=== PATIENT | male | born 1985 | race Hispanic/Latino ===

== ENCOUNTER 2023-07-18 20:09 | Emergency (ER) | payer BC, OTHER ==
--- OUTSIDE RECORDS SUMMARY | 2023-07-18 20:14 | XMS REPORT | Continuity of Care Document ---
:1985 Author Organization [facility] t Address [address] [facility] [address] [place] [address] Care Team Providers Name Role Phone Jos Almaraz Primary Care Physician BRENDEN BULLOCK Attending Clinician Unavailable Person Brenden ANDERSON Attending Clinician TAWANA NATHAN Attending Clinician Unavailable TAWANA NATHAN Attending Clinician Unavailable Tawana Nathan DO Attending Clinician KALPANA FIELD Attending Clinician Unavailable Jos Almaraz Attending Clinician Lab, Adc Fam Pob I Attending Clinician Unavailable Isidra Fuentes Attending Clinician Doctor Unassigned, [place] Attending Clinician Unavailable Liseth Crespo Attending Clinician Antoine Telles MD Attending Clinician ANTOINE TELLES Attending Clinician Unavailable BRENDEN BULLOCK Admitting Clinician Unavailable Person Brenden ANDERSON Admitting Clinician LISETH SCHILLING Admitting Clinician Unavailable Payers Payer Name Policy Type Policy Number Effective Date Expiration Date S petra [place] [id number] 2022 2023 OUT OF STATE 00:00:00 00:00:00 [facility] [id number] 2023 HEALTHCARE 00:00:00 [facility] [id number] 2023 SERVICES 00:00:00 Problems Condition Condition Condition Status Onset Resolution Last Treating Co mments Source Name Details Category Date Date Treatment Clinician Date Trauma Trauma Disease Active Univers 8- ity of 00:00: [place] 00 Medical Branch Seizures Seizures Disease Active [facility] 2-24 Health 00:00: 00 Cerebral Cerebral Problem Active 2022-01-26 Memoria cysticerco cysticerco 01:52:08 l sis sis [place] (disorder) (disorder) Active Problem 01/26/2022 [facility] Epilepsy Epilepsy Problem Active 2022-01-26 Memoria characteri characteri 01:52:08 l zed by zed by [place] 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 (disorder) (disorder) Active Problem 01/26/2022 [facility] Simple Simple Problem Active 2022-01-26 Mem oria obesity obesity 01:52:08 l (disorder) (disorder) He rmann Active Problem 01/26/2022 [facility] Allergies, Adverse Reactions, Alerts Allergy Allergy Status Severity Reaction(s) Onset Inactive Treating Comm ents Source Name Type Date Date Clinician Penicill Propensi Active Unknown - Uni vers in ty to See comments 05-20 ity of adverse 00:00: [place] reaction 00 Medical s Branch PENICILL DRUG Active Unknown-Cmnt Un stephanie IN INGREDI 05-20 ity of 00:00: [place] 00 Medical Branch Penicill Allergy Active Other [facility] in G to 05-20 Health substanc 00:00: e 00 penicill penicill Active Memori a in in l [place] Social History Social Habit Start Date Stop Date Quantity Comments Source Gender identity [facility] Sexual orientation Univer [facility] History of tobacco Cigarette Smoker [facility] use Exposure to 2023-01-04 2023-01-14 Not sure [facility] SARS-CoV-2 (event) 00:00:00 13:13:00 Tobacco use and 2023-01-14 2023-01-14 Former smokeless [facility] exposure 00:00:00 00:00:00 tobacco user Alcohol intake 2023-01-14 2023-01-14 [facility]er [facility] 00:00:00 00:00:00 of alcohol (finding) Social History 2020-12-27 2020-12-27 [facility] roberto 20:25:02 20:25:02 Sex Assigned At [birth year] [facility] 00:00:00 00:00:00 Smoking Status Start Date Stop Date Source Tobacco smoking consumption [facility] Branch Smokes tobacco daily 2023-01-14 00:00:00 [facility] Medications Ordered Filled Start Stop Current Ordering Indication Dosage Frequency Signature Comments Components Source Medication Medication Date Date Medication? Clinician (SIG) Name Name methocarbam Yes 1000mg 1,000 mg, Univers oL 07-17 Oral, QID, ity of (ROBAXIN) [place] Wed Medical 1,000 mg 07/16/23 at [facility] h 1999, Until Discontinu ed, Routine enoxaparin Yes 30mg 30 mg, Unive rs (LOVENOX) 07-17 Subcutaneo ity of injection 01:00: us, Q12H, Bry[place] as 30 mg 00 First dose Medical on Wed Branch 07/16/23 at 2000, Until Discontinu ed, Routine NON-FORMULA Yes 200mg 200 mg, Un stephanie RY 07-16 Oral, ity of MEDICATION 23:45: DAILY, [place] 200 mg 00 First dose Medical on Wed Branch 07/16/23 at 1845, Until Discontinu ed, Routine
Medicatio n Name: xcorpi
Length of Therapy: Indefinite
How soon needed (normally 72 hours needed to procure): 0-24 hrs
[place] son for non-formul horacio use: PATIENT CURRENTLY TAKING NONFORMULA RY PRODUCT
history faculty member approving Non-formul horacio medication : BRENDEN BULLOCK
Specific indication for non formulary use: siezures<b r>Literatu re citation: see neurology note<br&gt ;Dosage Form: Tablet pantoprazol 2022- Yes 40mg 40 mg, Uni vers e 07-16 Slow IV ity of (PROTONIX) 22:45: 22:44 Push, [place] injection 00 :00 Q24H, 3 Medical 40 mg doses, Branch First dose on Wed07/16/23 at 1745, Last dose on Wed07/18/23 at 1745 FENTanyl PF 2022- No 75ug 75 mcg, Un stephanie (SUBLIMAZE 07-16 Slow IV ity o f (PF)) 22:45: 22:01 Push, [place] injection 00 :00 ONCE, 1 Medical 75 mcg dose, On Branch 07/16/23 at 1745, Routine clonazePAM 2022- No .5mg 0.5 mg, Uni vers (KLONOPIN) 07-16 Oral, ONCE it y of tablet 0.5 22:45: 22:44 NOW, 1 [place] mg 00 :00 dose, On Medical Fri Branch 07/16/23 at 1745, Routine HYDROcodone Yes 1{tbl} 1 tablet, Univers -acetaminop 07-16 Oral, ity of hen (NORCO 22:40: Q6HPRN, [place] 5) 5-325 mg 51 Starting Medi dominique tablet 1 on Fri Branch tablet 07/16/23 at 1740, Until Discontinu ed, Routine, Pain (scale 4-6) acetaminoph Yes 1000mg 1,000 mg, Univers en 07-16 Oral, ity of (TYLENOL) 22:38: Q6HPRN, [place] tablet 46 Starting Medical 1,000 mg on Fri Branch 07/16/23 at 1738, Until Discontinu ed, Routine, Pain (scale 1-3) lacosamide 2022- No 200mg 200 mg, Un stephanie (VIMPAT) 07-16 Oral, ity of tablet 200 18:15: 17:52 ONCE, 1 [place] mg 00 :00 dose, On Medical Fri Branch 07/16/23 at 1315, Routine
history faculty member approving Restricted medication : TAWANA NATHAN iopamidol 2022- No [id number] 85mL 85 mL, Univers (ISOVUE 07-16 Intravenou ity o f 370-500 mL) 15:45: 15:45 s, ONCE, 1 [place] injection 00 :00 dose, On Medica l 85 mL Fri Branch 07/16/23 at 1045, Routine ketorolac 2022- No 30mg 30 mg, Unive rs (TORADOL) 8-25 08-25 Slow IV ity of injection 15:00: 14:17 Push, [place] 30 mg 00 :00 ONCE, 1 Medical dose, On Branch 07/16/23 at 1000, Routine morpHINE (4 2022- No 4mg 4 mg, Slow Univers mg/mL) 07-16 IV Push, ity of injection 4 14:15: 14:18 ONCE, 1 [place] mg 00 :[place] dose, On Medical Fri Branch 07/16/23 at 0915, STAT Cenobamate 2022-0 Yes [id number] 400mg QD Take 400 UT (Xcopri) 4-04 mg by Health 200 MG 00:00: mouth 1 tablet 00 (one) time each day. Cenobamate 2022-0 2022- No [id number] Take 50 mg UT (Xcopri) 50 2-15 03-08 by mouth 1 H ealth MG tablet 00:00: 04:59 (one) time 00 :00 each day for 14 days, THEN 100 mg 1 (one) time each day for 14 days, THEN 150 mg 1 (one) time each day for 14 days. lacosamide 2022-0 Yes 200mg Q.5D Take 200 UT (Vimpat) 2-17 mg by [facility] 200 mg 00:00: mouth in tablet 00 the tablet morning and 200 mg before bedtime. Xcopri 200 2022-0 2022- No 1{tbl} QD Take 1 UT MG tablet 2-17 -23 tablet by [facility] 00:00: 00:00 mouth 1 00 :00 (one) time each day. cenobamate 2021-0 Yes 100 mg = 1 M emoria 100 mg oral 3-04 tab, PO, l tablet 20:35: Daily, # [place] 00 30 tab, 3 Refill(s), Pharmacy: 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, Weight {2020-11 Yes See Memoria (cenobamate 1-11 Instructio l 12.5 MG 21:35: ns, take Dionte n Oral Tablet 00 as [Xcopri]) / diected, # 14 1 kit, 0 (cenobamate Refill(s), 25 MG Oral Pharmacy: Tablet [facility] [Xcopri]) } Pharmacy Pack 527, [Xcopri 177.8, cm, Titration 10/02/21 Pack - 12.5 15:19:00 MG (14), 25 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, MG (14) 28 Height, Count] 108.636, kg, 10/02/21 15:19:00 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, Weight {2020-11 No See Memoria (cenobamate 1-11 Instructio l 12.5 MG 21:32: ns, take Dionte n Oral Tablet 00 as [Xcopri]) / diected, # 14 1 kit, 0 (cenobamate Refill(s) 25 MG Oral Tablet [Xcopri]) } Pack [Xcopri Titration Pack - 12.5 MG (14), 25 MG (14) 28 Count] {2020-11 No See Memoria (cenobamate 1-11 Instructio l 12.5 MG 21:32: ns, take Dionte n Oral Tablet 00 as [Xcopri]) / diected, # 14 1 kit, 0 (cenobamate Refill(s) 25 MG Oral Tablet [Xcopri]) } Pack [Xcopri Titration Pack - 12.5 MG (14), 25 MG (14) 28 Count] lacosamide 2020-0 Yes 200 mg = 1 M emoria 200 MG Oral 9-07 tab, PO, l Tablet 18:43: BID, # 60 [place] [Vimpat] 00 tab, 3 Refill(s), Pharmacy: [facility], 182.88, cm, 05/22/21 9:53:00 CDT, Height, 111.364, kg, 05/22/21 9:53:00 CDT, Weight lacosamide 2020-0 Yes 200 mg = 1 M emoria 200 MG Oral 9-07 tab, PO, l Tablet 18:43: BID, # 60 [place] [Vimpat] 00 tab, 3 Refill(s), Pharmacy: [facility], 182.88, cm, 05/22/21 9:53:00 CDT, Height, 111.364, kg, 05/22/21 9:53:00 CDT, Weight lacosamide 2020-0 Yes 200 mg = 1 M emoria 200 MG Oral 5-20 tab, PO, l Tablet 14:44: BID, # 60 [place] [Vimpat] 00 tab, 3 Refill(s), Pharmacy: [facility] #[id number], 182.88, cm, 03/21/21 10:21:00 CDT, Height, 108.182, kg, 04/10/21 9:15:00 CDT, Weight lacosamide 2021-0 Yes 200 mg = 1 M emoria 200 MG Oral 5-20 tab, PO, l Tablet 14:44: BID, # 60 [place] [Vimpat] 00 tab, 3 Refill(s), Pharmacy: [facility] #[id number], 182.88, cm, 03/21/21 10:21:00 CDT, Height, 108.182, kg, 04/10/21 9:15:00 CDT, Weight lacosamide 2021-0 Yes 150 mg = 1 M emoria 150 MG Oral 4-30 tab, PO, l Tablet 15:35: BID, # 60 [place] [Vimpat] 00 tab, 3 Refill(s), Pharmacy: [facility] #[id number], 182.88, cm, 03/21/21 10:21:00 CDT, Height, 110.909, kg, 03/21/21 10:21:00 CDT, Weight lacosamide 2021-0 Yes 150 mg = 1 M emoria 150 MG Oral 4-30 tab, PO, l Tablet 15:35: BID, # 60 [place] [Vimpat] 00 tab, 3 Refill(s), Pharmacy: [facility] #[id number], 182.88, cm, 03/21/21 10:21:00 CDT, Height, 110.909, kg, 03/21/21 10:21:00 CDT, Weight lacosamide 2021-0 Yes 100 mg = 1 M emoria 100 MG Oral 3-19 tab, PO, l Tablet 16:28: BID, # 60 [place] [Vimpat] 00 tab, 3 Refill(s), Pharmacy: [facility] #[id number], 182.88, cm, 02/07/21 10:55:00 CDT, Height, 115.455, kg, 02/07/21 10:55:00 CDT, Weight lacosamide 2021-0 Yes 100 mg = 1 M emoria 100 MG Oral 3-19 tab, PO, l Tablet 16:28: BID, # 60 [place] [Vimpat] 00 tab, 3 Refill(s), Pharmacy: [facility] #[id number], 182.88, cm, 02/07/21 10:55:00 CDT, Height, 115.455, kg, 02/07/21 10:55:00 CDT, Weight lacosamide 2020-0 Yes 50 mg = 1 Me moria 50 MG Oral 2-05 tab, PO, l Tablet 21:56: BID, # 60 [place] [Vimpat] 00 tab, 3 Refill(s), Pharmacy: [facility] #[id number], 182.88, cm, 12/27/20 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, Height, 111.364, kg, 12/27/20 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, Weight lacosamide 2020-0 Yes 50 mg = 1 Me moria 50 MG Oral 2-05 tab, PO, l Tablet 21:56: BID, # 60 [place] [Vimpat] 00 tab, 3 Refill(s), Pharmacy: [facility] #[id number], 182.88, cm, 12/27/20 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, Height, 111.364, kg, 12/27/20 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, Weight Levetiracet 2020-0 Yes 500 mg = 1 Memoria am 500 MG 2-05 tab, PO, l Oral Tablet 21:55: Bedtime, # [place] 00 30 tab, 3 Refill(s), Pharmacy: [facility] #[id number], 182.88, cm, 12/27/20 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 levETIRAcet 2019-11 Yes [id number] 500mg Take 1 Univers am (KEPPRA) 1-20 tablet by ity of 500 mg 00:00: mouth 2 [place] tablet 00 (two) Medical times Branch daily. levETIRAcet 2019-11 Yes [id number] 500mg Take 1 Univers am (KEPPRA) 1-20 tablet by ity of 500 mg 00:00: mouth 2 [place] tablet 00 (two) Medical times Branch daily. levETIRAcet 2019-11 Yes [id number] 500mg Take 1 Univers am (KEPPRA) 1-20 tablet by ity of 500 mg 00:00: mouth 2 [place] tablet 00 (two) Medical times Branch daily. levETIRAcet 2019-11- No [id number] 500mg Take 1 Univers am (KEPPRA) 1-20 08-25 tablet by it y of 500 mg 00:00: 00:00 mouth 2 [place] tablet 00 :00 (two) Medical times Branch daily. Vital Signs Vital Name Observation Time Observation Value Comments Source Systolic blood 2023-07-17 01:43:00 120 mm[facility]Hg[facility] [place] [facility] Diastolic blood 2023-07-17 01:43:00 82 mm[Hg] [facility] Heart rate 2023-07-17 01:43:00 70 /min General acute hospital Respiratory rate 2023-07-17 01:43:00 18 /min [place] [facility] in 2023-07-17 01:43:00 99 /min [facility] Arterial blood by [facility] Pulse oximetry Branch Body height 2023-07-16 20:10:47 182.9 cm General acute hospital Body weight 2023-07-16 20:10:47 117.935 kg Universi ty [facility] BMI 2023-07-16 20:10:47 35.26 kg/m2 Universi ty [facility] Body temperature 2023-07-16 20:10:00 36.61 Sofya Univ ersity of [facility] Systolic blood 2023-07-16 18:35:00 120 mm[Hg] Univer sity of pressure [facility] Diastolic blood 2023-07-16 18:35:00 78 mm[Hg] Unive rsity of pressure [facility] Heart rate 2023-07-16 18:35:00 66 /min Universi ty of [facility] Body temperature 2023-07-16 18:35:00 36.89 [facility] Respiratory rate 2023-07-16 18:35:00 16 /min [facility] in 2023-07-16 18:35:00 96 /min University Arterial blood by [facility] Pulse oximetry Branch Body height 2023-07-16 14:25:08 182.9 cm Universi ty [facility] Body weight 2023-07-16 14:25:08 117.028 kg Universi ty [facility] BMI 2023-07-16 14:25:08 [facility] Systolic blood 2023-01-14 21:16:00 126 mm[Hg] [facility] Diastolic blood 2023-01-14 21:16:00 76 mm[Hg] [facility] pressure Heart rate 2023-01-14 21:16:00 84 /min [facility] Body temperature 2023-01-14 21:16:00 36.72 Sofya [facility] Respiratory rate 2023-01-14 21:16:00 16 /min [facility] Body height 2023-01-14 21:16:00 182.9 cm [facility] Body weight 2023-01-14 21:16:00 118.842 kg [facility] BMI 2023-01-14 21:16:00 35.53 kg/m2 [facility] Oxygen saturation in 2023-01-14 21:16:00 99 /min [facility] Arterial blood by Pulse oximetry Systolic blood 2020-10-11 10:58:25 138 mm[Hg] Univer sity of pressure [facility] Diastolic blood 2020-10-11 10:58:25 73 mm[Hg] Unive rsity of pressure [facility] Heart rate 2020-10-11 10:58:25 61 /min General acute hospital Respiratory rate 2020-10-11 10:58:25 17 /min [facility] Oxygen saturation in 2020-10-11 10:58:25 97 /min [facility] Arterial blood by [facility] Pulse oximetry Branch Body temperature 2020-10-11 08:35:00 36.78 Sofya [place] [facility] Body height 2020-10-11 08:35:00 182.9 cm General acute hospital Body weight 2020-10-11 08:35:00 104.781 kg General acute hospital BMI 2020-10-11 08:35:00 31.33 kg/m2 General acute hospital Systolic (mm Hg) 2022-01-23 20:09:00 Dru rial [place] Diastolic (mm Hg) 2022-01-23 20:09:00 Mem orial [place] Heart Rate 2022-01-23 20:09:00 [facility] [place] Respitory Rate 2022-01-23 20:09:00 Memori al [place] Height 2022-01-23 20:09:00 177.8 cm [facility] [place] Weight 2022-01-23 20:09:00 [facility] [place] BMI Calculated 2022-01-23 20:09:00 Memori al [place] Systolic (mm Hg) 2021-10-02 21:08:00 Dru rial [place] Diastolic (mm Hg) 2021-10-02 21:08:00 Mem orial [place] Heart Rate 2021-10-02 21:08:00 Memorial [place] Respitory Rate 2021-10-02 21:08:00 Memori al [place] Height 2021-10-02 21:08:00 177.8 cm Memorial [place] Weight 2021-10-02 21:08:00 [facility] [place] BMI Calculated 2021-10-02 21:08:00 Memori al [place] Systolic (mm Hg) 2021-08-22 14:07:00 Dru rial [place] Diastolic (mm Hg) 2021-08-22 14:07:00 Mem orial [place] Heart Rate 2021-08-22 14:07:00 Memorial [place] Respitory Rate 2021-08-22 14:07:00 Memori al [place] Height 2021-08-22 14:07:00 177.8 cm Memorial [place] Weight 2021-08-22 14:07:00 [facility] [place] BMI Calculated 2021-08-22 14:07:00 Memori al [place] Diastolic (mm Hg) 2021-05-22 14:38:00 Mem orial [place] Heart Rate 2021-05-22 14:38:00 [facility] [place] Respitory Rate 2021-05-22 14:38:00 Memori al [place] Height 2021-05-22 14:38:00 182.88 cm Memorial [place] Weight 2021-05-22 14:38:00 [facility] [place] BMI Calculated 2021-05-22 14:38:00 Memori al [place] Systolic (mm Hg) 2021-05-22 14:38:00 Dru rial [place] Systolic (mm Hg) 2021-04-10 14:15:00 Dru rial [place] Diastolic (mm Hg) 2021-04-10 14:15:00 Mem orial [place] Heart Rate 2021-04-10 14:15:00 [facility] [place] Respitory Rate 2021-04-10 14:15:00 Memori al [place] Weight 2021-04-10 14:15:00 [facility] [place] Systolic (mm Hg) 2021-03-21 15:21:00 Dru rial [place] Diastolic (mm Hg) 2021-03-21 15:21:00 Mem orial [place] Heart Rate 2021-03-21 15:21:00 [facility] [place] Respitory Rate 2021-03-21 15:21:00 Memori al [place] Height 2021-03-21 15:21:00 182.88 cm Memorial [place] Weight 2021-03-21 15:21:00 [facility] [place] BMI Calculated 2021-03-21 15:21:00 Memori al [place] Systolic (mm Hg) 2021-02-07 15:29:00 Dru rial [place] Diastolic (mm Hg) 2021-02-07 15:29:00 Mem orial [place] Heart Rate 2021-02-07 15:29:00 [facility] [place] Respitory Rate 2021-02-07 15:29:00 Memori al [place] Height 2021-02-07 15:29:00 182.88 cm Memorial [place] Weight 2021-02-07 15:29:00 [facility] [place] BMI Calculated 2021-02-07 15:29:00 Memori al [place] Systolic (mm Hg) 2020-12-27 20:19:00 Dru rial [place] Diastolic (mm Hg) 2020-12-27 20:19:00 Mem orial [place] Heart Rate 2020-12-27 20:19:00 [facility] [place] Respitory Rate 2020-12-27 20:19:00 Memori al [place] Height 2020-12-27 20:19:00 182.88 cm [facility] [place] Weight 2020-12-27 20:19:00 [facility] [place] BMI Calculated 2020-12-27 20:19:00 Memori al [place] Procedures Procedure Date / Time Performing Clinician Source Performed XR ANKLE 3+ VW RIGHT 2023-07-16 22:34:12 [facility] XR ANKLE <3 VW RIGHT 2023-07-16 21:46:00 Warren Leonardo [facility] LIPASE 2023-07-16 20:18:00 Person, [facility] COMP. METABOLIC PANEL 2023-07-16 20:18:00 Person, [facility] ([id number]) [facility] CBC WITHOUT DIFF 2023-07-16 20:18:00 Person, [facility] PROTHROMBIN TIME / INR 2023-07-16 20:18:00 Person, [facility] ACTIVATED PARTIAL 2023-07-16 20:18:00 Person, [facility] THRMPLAS TALIB [facility] HB INDIRECT 2023-07-16 20:18:00 Person, [facility] ANTIGLOBULIN TEST [facility] KEPPRA (LEVETIRACETAM) 2023-07-16 20:18:00 Xavi Carney [facility] Karen [facility] CT 2023-07-16 17:52:50 Tawana Nathan [place] [facility] MAXILLOFACIAL/MANDIBLE Medical B ranch WO CONTRAST NE APPLICATION LONG LEG 2023-07-16 17:44:56 Jac [facility] SPLINT THIGH ANKLE/TOES Medical Branch CT TRAUMA THORAX W 2023-07-16 14:57:29 Jac [facility] CONTRAST Medical Branch CT TRAUMA ABDOMEN 2023-07-16 14:57:29 Jac, [facility] PELVIS W CONTRAST Medical Branch CT TRAUMA THORACIC 2023-07-16 14:57:05 Jac Chan [facility] SPINE WO CONTRAST [facility] CT TRAUMA LUMBAR SPINE 2023-07-16 14:57:05 Jac [facility] CONTRAST Medical Branch CT TRAUMA HEAD WO 2023-07-16 14:51:07 Jac [facility] CONTRAST [facility] Branch CT TRAUMA CERVICAL 2023-07-16 14:51:07 Jac Chan [facility] SPINE WO CONTRAST Medical Branch XR ANKLE 3+ VW RIGHT 2023-07-16 14:50:37 Jac, [facility] XR FOOT 3+ VW RIGHT 2023-07-16 14:50:37 Jac, [facility] XR KNEE 3 VW RIGHT 2023-07-16 14:50:37 Jac, [facility] XR TIBIA FIBULA 2 VW 2023-07-16 14:50:37 Jac [facility] Medical Branch LIPASE 2023-07-16 14:20:00 Jac [facility] TROPONIN I 2023-07-16 14:20:00 Jac [facility] HEPATIC FUNCTION PANEL 2023-07-16 14:20:00 Jac [facility] ([id number]) (ALB,T.PRO,BILI Medical Branch T,BU/BC,ALT,AST,ALK PHOS) BASIC METABOLIC PANEL 2023-07-16 14:20:00 Jac [facility] (NA, K, CL, CO2, Medical Branch GLUCOSE, BUN, CREATININE, CA) CBC WITH DIFF 2023-07-16 14:20:00 [facility] PROT[facility] / INR 2023-07-16 14:20:00 [facility] ACTIVATED PARTIAL 2023-07-16 14:20:00 [facility] THRMPLAS TALIB [facility] CONSENT/REFUSAL FOR 2023-07-16 13:32:47 Doctor Unassigned, No [facility] DIAGNOSIS AND TREATMENT Name Medical [place] ASSIGNMENT OF BENEFITS 2021-06-25 16:05:49 Doctor Unassigned, No [facility] Branch COVID-19 (ID NOW RAPID 2020-10-11 09:22:00 Liseth Schilling [facility] TESTING) [facility] [place] [facility] HEAD WO CONTRAST 2020-10-11 09:07:11 Liseth Schilling [facility] CREATINE KINASE 2020-10-11 08:56:00 Shakir [facility] COMP. METABOLIC PANEL 2020-10-11 08:56:00 Liseth Schilling [facility] ([id number]) Medical Branch ETHANOL 2020-10-11 08:56:00 Shakir [facility] CBC WITH DIFF 2020-10-11 08:56:00 Shakir [facility] NOTICE OF PRIVACY 2020-10-11 08:26:28 Doctor Unassigned, No [facility] PRACTICES Name Medical Branch CONSENT/REFUSAL FOR 2020-10-11 08:26:10 Doctor Unassigned, No [facility] DIAGNOSIS AND TREATMENT [facility] Encounters Start End Encounter Admission Attending Care Care Encounter Source Date/Time Date/Time Type Type Clinicians Facility Department ID 2023-03-25 Outpatient [facility] [id number] [place] 08:40:44 [id number] [facility] 2023-02-26 Outpatient [facility] [id number] [place] 08:43:15 [id number] [facility] 2023-01-14 Outpatient [facility] [id number] [place] 13:14:32 [id number] [facility] 2023-01-12 Outpatient [facility] [id number] [place] 10:03:10 [id number] [facility] 2023-01-11 Outpatient [facility] [id number] [place] 15:56:10 [id number] [facility] 2022-11-10 Outpatient [facility] [id number] [place] 11:34:48 [id number] [facility] 2022-11-09 Outpatient [facility] [id number] [place] 13:46:51 [id number] [facility] 2023-07-16 2023-07-16 Outpatient T PERSON, [facility] STR [id number] Univers 15:07:00 20:46:00 BRENDEN ity [facility] 2023-07-16 2023-07-16 Emergency Person, TRAUMA [id number]

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
[2023-07-18] MEDS ORDERED: CODEINE 30MG/APAP 300MG TAB ONE (22:50)
[2023-07-18] MEDS ORDERED: MUPIROCIN 2% OINT 22GM TUBE TOP ONE (22:50)
[2023-07-19 01:23] VITALS: TEMP 98.9; O2SAT 98
== END 2023-07-18 23:27 | disposition home or self-care (01) ==
LOC: ER 20:09
DX: M25.571 Pain in right ankle and joints of right foot (principal); S82.891S Other fracture of right lower leg, sequela; S92.901S Unspecified fracture of right foot, sequela; S90.821A Blister (nonthermal), right foot, initial encounter; Z04.1 Encounter for examination and observation following transport accident
CPT/HCPCS: 99283